=== PATIENT | female | born 1985 | race Caucasian/White ===

== ENCOUNTER → 2020-06-10 | Outpatient (CLI) | payer OTHER ==
[~2020-06-10] MED LIST: ACET325 PO; ERGO400 PO; Icaps Tablet1 EACH PO; ONDA4 PO; PROM25 PO; Prenatabs Rx T1 EACH PO; Vitamin C100 M1 PO
[2020-06-14 16:11] LABS: HPV 16 Negative (Negative); HPV 18 Negative (Negative); HPV OTHER HR TYPES Negative (Negative)
== END | disposition home or self-care (01) ==
LOC: LAB EV 08:30 → LAB SHORT 08:30
PROVIDERS: Family Medicine
DX: Z01.419 Encounter for gynecological examination (general) (routine) without abnormal findings (principal)
CPT/HCPCS: 87624; G0123

== ENCOUNTER → 2020-07-04 | Outpatient (CLI) | payer OTHER | END | disposition home or self-care (01) | LOC: LAB SHORT 15:22 → PLD 15:22 | DX: L57.0 Actinic keratosis (principal) | CPT/HCPCS: 88305; 88312 ==